=== PATIENT | male | born 1990 | race Hispanic/Latino ===

== ENCOUNTER → 2017-11-19 | Outpatient (CLI) | payer MEDICAID | LOC: M OUTALCOH 08:10 | DX: Z13.9 Encounter for screening, unspecified (principal); F12.10 Cannabis abuse, uncomplicated ==

== ENCOUNTER 2018-02-21 18:24 | Emergency (ER) | payer SELFPAY, MEDICAID ==
[2018-02-21] MEDS: ADACEL/BOOSTRIX VACCINE (DIPHTH/PERTUSS/ACELL/TETANUS)0.5ML SYR (90715) IM ×2 (19:26)
[2018-02-21] MEDS: BACTRIM 160MG/800MG DS TAB PO ×2 (19:29)
== END 2018-02-21 19:42 | disposition home or self-care (01) ==
LOC: M ED 19:42
DX: S81.812A Laceration without foreign body, left lower leg, initial encounter (principal); W26.8XXA Contact with other sharp object(s), not elsewhere classified, initial encounter; Y92.89 Other specified places as the place of occurrence of the external cause; F41.9 Anxiety disorder, unspecified
CPT/HCPCS: 90715

== ENCOUNTER 2018-11-19 16:16 | Emergency (ER) | payer MEDICAID, OTHER, SELFPAY ==
[~2018-11-19] VITALS: Ht 172.7 cm; Wt 142.6 kg
[~2018-11-19 16:16] MED LIST: BACT800T5 PO; DEPA500T2 PO; HALO1TAB29 IM; LORA2TA IM; PAXI20TA3 PO; no home medications
[2018-11-19] MEDS ORDERED: FAMOTIDINE IV BAG 20 MG in APPROPRIATE DILUENT 1 EA IV ONE (18:30)
[2018-11-19] MEDS ORDERED: ONDANSETRON 4MG/2ML VIAL (J2405) IV ONE (18:30)
[2018-11-19] MEDS ORDERED: NS 1,000 ML IV ONE (18:30)
[2018-11-19] MEDS ORDERED: KETOROLAC 30 MG/ML VIAL (J1885) IV ONE (18:30)
[2018-11-19 18:44] LABS: BASO % 0.4 % (0.0-1.0); EOS # 0.1 10^3/uL (0.0-0.50); EOS % 0.9 % (0.0-3.0); HEMATOCRIT 49.4 % (42.0-52.0); HEMOGLOBIN 16.3 g/dl (13.5-17.5); LYMPH # 0.6 10^3/uL (1.5-6.5); LYMPH % 7.7 % (24.0-44.0); MEAN CORPUSCULAR VOLUME 87.7 fl (80.0-96.0); MONO # 0.4 10^3/uL (0.0-0.8); MONO % 5.3 % (0.0-5.0); NEUTROPHILS % 85.2 % (36.0-66.0); PLATELET COUNT, AUTOMATED 118 10^3/uL (150-450); RED BLOOD COUNT 5.63 10^6/uL (4.30-6.10); WHITE BLOOD COUNT 8.2 10^3/uL (4.0-10.0)
[2018-11-19 19:07] LABS: ALBUMIN 4.3 GM/DL (3.2-5.2); ALT/SGPT 60 U/L (12-78); BILIRUBIN,DIRECT 0.2 MG/DL (0.0-0.2); BILIRUBIN,TOTAL 0.6 MG/DL (0.2-1.0); BLOOD UREA NITROGEN 15 MG/DL (7-18); CALCIUM LEVEL 8.7 MG/DL (8.5-10.1); CARBON DIOXIDE LEVEL 25 MEQ/L (21-32); CHLORIDE LEVEL 107 MEQ/L (98-107); CREATININE FOR GFR 1.04 MG/DL (0.70-1.30); GLOMERULAR FILTRATION RATE > 60.0 (>60); GLUCOSE, FASTING 107 MG/DL (70-100); LIPASE 109 U/L (73-393); POTASSIUM SERUM 4.1 MEQ/L (3.5-5.1); SODIUM LEVEL 139 MEQ/L (136-145); TOTAL PROTEIN 7.6 GM/DL (6.4-8.2)
[2018-11-19] MEDS ORDERED: ZOFR4TAB16 PO (19:38)
[2018-11-19 19:45] VITALS: BP 111/51
== END 2018-11-19 20:14 | disposition home or self-care (01) ==
LOC: M ED 16:16
DX: K52.9 Noninfective gastroenteritis and colitis, unspecified (principal); Z72.0 Tobacco use
CPT/HCPCS: 80048; 80076; 83690; 85025; 96365; 96366; 96375; 99284; J1885; J2405

== ENCOUNTER 2019-01-28 02:53 | Inpatient (IN) | payer MEDICAID, OTHER ==
[~2019-01-28] VITALS: Ht 172.7 cm; Wt 135.1 kg
[~2019-01-28 02:53] MED LIST changes: +ZOFR4TAB16 PO
[2019-01-28] MEDS ORDERED: SERO1TAB3 PO (03:56)
[2019-01-28] MEDS ORDERED: PROZ20CA11 PO (03:56)
[2019-01-28 04:14] LABS: HEMATOCRIT 47.2 % (42.0-52.0); HEMOGLOBIN 15.6 g/dl (13.5-17.5); MEAN CORPUSCULAR HEMOGLOBIN 29.3 pg (27.0-33.0); MEAN CORPUSCULAR HGB CONC 33.1 g/dl (32.0-36.5); MEAN CORPUSCULAR VOLUME 88.6 fl (80.0-96.0); PLATELET COUNT, AUTOMATED 144 10^3/uL (150-450); RED BLOOD COUNT 5.33 10^6/uL (4.30-6.10); WHITE BLOOD COUNT 10.2 10^3/uL (4.0-10.0)
[2019-01-28 04:44] LABS: ACETAMINOPHEN LEVEL < 2.0 UG/ML (10.0-30.0); ALBUMIN 4.1 GM/DL (3.2-5.2); ALT/SGPT 38 U/L (12-78); BILIRUBIN,DIRECT 0.2 MG/DL (0.0-0.2); BILIRUBIN,TOTAL 0.5 MG/DL (0.2-1.0); BLOOD UREA NITROGEN 15 MG/DL (7-18); CALCIUM LEVEL 8.8 MG/DL (8.5-10.1); CARBON DIOXIDE LEVEL 24 MEQ/L (21-32); CHLORIDE LEVEL 110 MEQ/L (98-107); CREATININE FOR GFR 1.14 MG/DL (0.70-1.30); ETHYL ALCOHOL (ETHANOL) < 0.003 % (0.000-0.010); GLOMERULAR FILTRATION RATE > 60.0 (>60); GLUCOSE, FASTING 101 MG/DL (70-100); POTASSIUM SERUM 3.9 MEQ/L (3.5-5.1); SALICYLATE LEVEL < 1.7 MG/DL (5.0-30.0); SODIUM LEVEL 143 MEQ/L (136-145); TOTAL PROTEIN 7.9 GM/DL (6.4-8.2)
[2019-01-28 05:02] LABS: AMPHETAMINES LEVEL URINE NEGATIVE (NEGATIVE); BARBITURATES URINE NEGATIVE (NEGATIVE); BENZODIAZEPINES URINE NEGATIVE (NEGATIVE); CANNABINOIDS URINE POSITIVE (NEGATIVE); COCAINE METABOLITE URINE NEGATIVE (NEGATIVE); METHADONE URINE NEGATIVE (NEGATIVE); OPIATES URINE NEGATIVE (NEGATIVE); PHENCYCLIDINE URINE NEGATIVE (NEGATIVE)
[2019-01-28] MEDS ORDERED: traZODone 50 MG TAB PO PRN (07:00)
[2019-01-28] MEDS ORDERED: MOM 30ML SUSPENSION UDC PO PRN (07:00)
[2019-01-28] MEDS ORDERED: ACETAMINOPHEN TAB 650MG DOSE (2X325MG) PO PRN (07:00)
[2019-01-28] MEDS ORDERED: MAALOX 30 ML SUSP *UDC PO PRN (07:00)
[2019-01-28 08:43] VITALS: BP 133/77
--- NOTE | 2019-01-28 09:39 | HPEPDOC ---
General Date of Admission Jan 28, 2019 at 07:01 Date of Service: Jan 28, 2019 Attending Physician: GOOD FOURNIER MD Chief Complaint The patient is a 28-year-old male admitted with a reason for visit of Unspecified Depressive Disorder. History of Present Illness Patient is a 28-year-old male, past medical history significant for anxiety, depression, presenting to the emergency room on account of not feeling safe in acute PTSD. He also reported recent domestic stressors acting as a trigger for this episode. On assessment he denies any medical history. he requests screening for STDs. He denies any fevers, chills, weakness, fatigue, HUTSON, CP, SOB, cough, palpitations, abdominal pain, N/V/D or changes in bowel or bladder habits. Home Medications Scheduled Fluoxetine HCl (Prozac) 20 Mg Capsule, 20 MG PO DAILY, (Reported) Quetiapine Fumarate (Seroquel) 25 Mg Tablet, 25 MG PO QHS, (Reported) Allergies Coded Allergies: No Known Allergies (Unverified , 01/28/19) Past Medical History Medical History Obesity Nicotine dependence Surgical History Right foot big toe bone spur removal Social History * Smoker: current smoker Alcohol: Denies Drugs: marijuana A-FIB/CHADSVASC A-FIB History Current/History of A-Fib/PAF?: No Current PO Anticoag Therapy: No Review of Systems Other systems A 10 point pertinent review of systems was completed, negative except as stated in the history of presenting illness. Physical Examination Other physical findings GENERAL: obese SKIN : Warm, dry intact HEENT: Atraumatic, normocephalic, PERRL, moist mucous membrane CARDIOVASCULAR: Regular rate and rhythm, S1S2, no JVD, no edema, distal pulses + and palpable RESP: CTAB, no accessory muscle use noted ABDOMEN: BS+ non distended non tender MS: no joint deformities NEURO: Alert and oriented x 3, CN2-12 grossly intact PSYCH: no anxiety or agitation, appropriate mood and affect. Vital Signs Vital Signs Date Time Temp Pulse Resp B/P (MAP) Pulse Ox O2 Delivery O2 Flow Rate FiO2 01/28/19 08:18 99.1 61 20 119/57 (77) 100 01/28/19 04:01 Room Air Laboratory Data Labs 24H Laboratory Tests 2 01/28/19 03:49: Nucleated Red Blood Cells % (auto) 0.0, Anion Gap 9, Glomerular Filtration Rate > 60.0, Calcium Level 8.8, Aspartate Amino Transf (AST/SGOT) 26, Alanine A minotransferase (ALT/SGPT) 38, Alkaline Phosphatase 83, Total Bilirubin 0.5, Direct Bilirubin 0.2, Total Protein 7.9, Albumin 4.1, Albumin/Globulin Ratio 1.08, Thyroid Stimulating Hormone (TSH) 1.940, Salicylates Level < 1.7L, Urine Amphetamines Screen NEGATIVE, Urine Benzodiazepines Screen NEGATIVE, Urine Opiates Screen NEGATIVE, Urine Methadone Screen NEGATIVE, Acetaminophen Level < 2.0L, Urine Barbiturates Screen NEGATIVE, Urine Phencyclidine Screen NEGATIVE, Urine Cocaine Metabolite Screen NEGATIVE, Urine Cannabinoids Screen POSITIVEH, Ethyl Alcohol Level < 0.003 CBC/BMP Laboratory Tests 01/28/19 03:49 Red Blood Count 5.33, Mean Corpuscular Volume 88.6, Mean Corpuscular Hemoglobin 29.3, Mean Corpuscular Hemoglobin Concent 33.1, Red Cell Distribution Width 13.2 Assessment/Plan Obesity -TLC have been discussed with patient STD screening -test have been ordered Nicotine use/Anxiety/PTSD Management by primary team At this time patient has no acute medical problems or underlying comorbidities requiring active follow-up. Acute problems are managed by primary team. Medical team will sign off, please re-consult as needed. Plan / VTE VTE Prophylaxis Ordered?: No VTE Exclusion Mechanical Proph: Low Risk for VTE KEENAN NYE [facility] Jan 28, 2019 09:39
[2019-01-28] MEDS: NICOTINE 21MG/24HR 1 EA TRANSDERMAL TD SCH (10:05)
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
[2019-01-28 18:35] VITALS: BP 108/58
[2019-01-28] MEDS: QUEtiapine FUMARATE 25 MG TAB PO PRN (20:10)
[2019-01-29 06:44] VITALS: BP 101/56
[2019-01-29] MEDS: FLUoxetine 20 MG CAP PO SCH (08:17)
[2019-01-29] MEDS: NICOTINE 21MG/24HR 1 EA TRANSDERMAL TD SCH (08:17)
[2019-01-29] MEDS: DOCUSATE SODIUM 100 MG CAP PO SCH ×2 (12:03→21:00)
[2019-01-29 18:00] VITALS: BP 140/66
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
[2019-01-29] MEDS: QUEtiapine FUMARATE 25 MG TAB PO PRN (21:16)
[2019-01-30 06:46] VITALS: BP 121/69
[2019-01-30] MEDS: NICOTINE 21MG/24HR 1 EA TRANSDERMAL TD SCH (09:00)
[2019-01-30] MEDS: DOCUSATE SODIUM 100 MG CAP PO SCH (09:00)
[2019-01-30] MEDS: FLUoxetine 20 MG CAP PO SCH (09:34)
[2019-01-30] MEDS ORDERED: TRAZ1TAB10 PO (10:35)
[2019-01-30] MEDS ORDERED: COLA100C5 PO (10:35)
[2019-01-30] MEDS ORDERED: NICO21PAT TD (10:35)
[2019-01-30] MEDS ORDERED: SERO1TAB3 PO (10:35)
[2019-01-30] MEDS ORDERED: PROZ20CA11 PO (10:35)
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
[2019-01-31 00:09] LABS: HIV-1 RNA PCR QUANT 1 LC162545 <20 copies/mL (.)
== END 2019-01-30 11:25 | disposition home or self-care (01) | DRG 751 ==
LOC: M ED 02:53 → M ED INP 07:01 → M PSY 08:30
PROVIDERS: ADMIT Psychiatry & Neurology Psychiatry; ATTEND Psychiatry & Neurology Psychiatry
DX: F33.9 Major depressive disorder, recurrent, unspecified (principal); F41.1 Generalized anxiety disorder; F43.10 Post-traumatic stress disorder, unspecified; Z79.899 Other long term (current) drug therapy

== ENCOUNTER → 2019-03-23 | Outpatient (REF) | payer OTHER ==
[~2019-03-23] MED LIST changes: +COLA100C5 PO; +NICO21PAT TD; +PROZ20CA11 PO; +SERO1TAB3 PO; +TRAZ1TAB10 PO
[2019-03-23 20:43] LABS: CHLAMYDIA DNA AMPLIFICATION NEGATIVE (NEGATIVE); GC DNA AMPLIFICATION NEGATIVE (NEGATIVE)
== END ==
LOC: M LAB REF 10:00
PROVIDERS: ATTEND Nurse Practitioner Family
DX: Z20.2 Contact with and (suspected) exposure to infections with a predominantly sexual mode of transmission (principal)

== ENCOUNTER 2019-04-02 22:52 | Emergency (ER) | payer MEDICAID, OTHER ==
[~2019-04-02] VITALS: Ht 172.7 cm; Wt 127.3 kg
[2019-04-02 22:52] VITALS: BP 136/95
== END 2019-04-03 00:25 | disposition left against medical advice (07) ==
LOC: M ED 22:52
DX: Z53.29 Procedure and treatment not carried out because of patient's decision for other reasons (principal)

== ENCOUNTER → 2019-06-02 | Outpatient (REF) | payer OTHER ==
[2019-06-02 16:00] LABS: CHLAMYDIA DNA AMPLIFICATION NEGATIVE (NEGATIVE); GC DNA AMPLIFICATION NEGATIVE (NEGATIVE)
== END ==
LOC: M LAB REF 13:32
PROVIDERS: ATTEND Physician Assistant Medical
DX: Z11.3 Encounter for screening for infections with a predominantly sexual mode of transmission (principal)

== ENCOUNTER 2019-12-28 00:18 | Emergency (ER) | payer OTHER ==
[~2019-12-28] VITALS: Ht 172.7 cm; Wt 128.2 kg
[2019-12-28 01:03] LABS: BASO # 0.1 10^3/uL (0.0-0.2); BASO % 0.7 % (0.0-1.0); EOS # 0.1 10^3/uL (0.0-0.5); EOS % 0.9 % (0.0-3.0); HEMATOCRIT 47.1 % (42.0-52.0); HEMOGLOBIN 16.3 g/dl (13.5-17.5); LYMPH # 2.4 10^3/uL (1.5-5.0); MEAN CORPUSCULAR HEMOGLOBIN 29.3 pg (27.0-33.0); MEAN CORPUSCULAR HGB CONC 34.6 g/dl (32.0-36.5); MEAN CORPUSCULAR VOLUME 84.7 fl (80.0-96.0); MONO % 11.9 % (0.0-5.0); NEUTROPHILS # 5.2 10^3/uL (1.5-8.5); NEUTROPHILS % 58.7 % (36.0-66.0); PLATELET COUNT, AUTOMATED 216 10^3/uL (150-450); RED BLOOD COUNT 5.56 10^6/uL (4.30-6.10); WHITE BLOOD COUNT 8.8 10^3/uL (4.0-10.0)
[2019-12-28 01:45] LABS: ALBUMIN 3.9 GM/DL (3.2-5.2); ALT/SGPT 67 U/L (12-78); BILIRUBIN,DIRECT 0.2 MG/DL (0.0-0.2); BILIRUBIN,TOTAL 0.6 MG/DL (0.2-1.0); BLOOD UREA NITROGEN 20 MG/DL (7-18); CALCIUM LEVEL 9.1 MG/DL (8.5-10.1); CARBON DIOXIDE LEVEL 22 MEQ/L (21-32); CHLORIDE LEVEL 107 MEQ/L (98-107); CK-MB VALUE MASS < 1.0 NG/ML (<3.6); CPK CREATINE PHOSPHOKINASE 174 U/L (39-308); GLOMERULAR FILTRATION RATE > 60.0 (>60); GLUCOSE, FASTING 100 MG/DL (70-100); LIPASE 111 U/L (73-393); MB/CK RELATIVE INDEX 0.57 (< OR =4); SODIUM LEVEL 138 MEQ/L (136-145); TOTAL PROTEIN 8.6 GM/DL (6.4-8.2); TROPONIN I < 0.02 NG/ML (< 0.10)
[2019-12-28] MEDS ORDERED: ISOVUE-370 76% 100ML VIAL As Ordered ONE (01:50)
--- NOTE | 2019-12-28 02:14 | REPVR ---
PROCEDURE INFORMATION: Exam: CT Angiography Chest With Contrast Exam date and time: 12/28/2019 2:01 AM Age: 29 years old Clinical indication: Chest pain; Additional info: Pain with deep breathing and elevated ddimer R/O pe TECHNIQUE: Imaging protocol: Computed tomographic angiography of the chest with intravenous contrast. 3D rendering: MIP and/or 3D reconstructed images were created by the technologist. Radiation optimization: All CT scans at this facility use at least one of these dose optimization techniques: automated exposure control; mA and/or kV adjustment per patient size (includes targeted exams where dose is matched to clinical indication); or iterative reconstruction. Contrast material: ISO 370; Contrast volume: 100 ml; Contrast route: IV; COMPARISON: No relevant prior studies available. FINDINGS: Pulmonary arteries: Normal. No pulmonary emboli. Aorta: Unremarkable. No aortic aneurysm. No aortic dissection. Lungs: Unremarkable. No consolidation. No masses. Pleural space: Unremarkable. No pneumothorax. No pleural effusion. Heart: Unremarkable. No cardiomegaly. No pericardial effusion. Lymph nodes: Unremarkable. No enlarged lymph nodes. Bones/joints: Unremarkable. No acute fracture. Soft tissues: Unremarkable. IMPRESSION: No acute findings. Electronically signed by: Ángel Dave On 12/28/2019 02:14:10 AM
[2019-12-28 02:35] VITALS: BP 131/86
--- NOTE | 2019-12-28 06:31 | ECGEPIP ---
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
== END 2019-12-28 02:35 | disposition home or self-care (01) ==
LOC: M ED 00:18
DX: R07.9 Chest pain, unspecified (principal); R06.02 Shortness of breath; F12.90 Cannabis use, unspecified, uncomplicated
CPT/HCPCS: 36415; 71275; 80048; 80076; 82550; 82553; 83690; 85025; 85379; 93005; 99284; Q9967

== ENCOUNTER 2020-09-12 13:08 | Emergency (ER) | payer OTHER ==
[~2020-09-12] VITALS: Ht 172.7 cm; Wt 130.6 kg
[2020-09-12 13:08] VITALS: BP 139/75
--- OUTSIDE RECORDS SUMMARY | 2020-09-12 13:13 | CCD ---
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 Role Phone Pleskach, Kathi SPOT MAN Unavailable Unavailable Pleskach, Kathi SPOT MAN Unavailable Unavailable Pleskach, Kathi SPOT MAN Unavailable Unavailable Pleskach, Kathi SPOT MAN Unavailable Unavailable Pleskach, Kathi SPOT MAN Unavailable Unavailable Pleskach, Kathi SPOT MAN Unavailable Unavailable Pleskach, Kathi SPOT MAN Unavailable Unavailable Pleskach, Kathi SPOT MAN Unavailable Unavailable Pleskach, Kathi SPOT MAN Unavailable Unavailable Pleskach, Kathi SPOT MAN Unavailable Unavailable Pleskach, Kathi SPOT MAN Unavailable Unavailable Pleskach, Kathi SPOT MAN Unavailable Unavailable Pleskach, Kathi SPOT MAN Unavailable Unavailable Pleskach, Kathi SPOT MAN Unavailable Unavailable Pleskach, Kathi SPOT MAN Unavailable Unavailable Pleskach, Kathi SPOT MAN Unavailable Unavailable Pleskach, Kathi SPOT MAN Unavailable Unavailable Pleskach, Kathi SPOT MAN Unavailable Unavailable Pleskach, Kathi SPOT MAN Unavailable Unavailable Pleskach, Kathi SPOT MAN Unavailable Unavailable Pleskach, Kathi SPOT MAN Unavailable Unavailable Pleskach, Kathi SPOT MAN Unavailable Unavailable Pleskach, Kathi SPOT MAN Unavailable Unavailable Pleskach, Kathi SPOT MAN Unavailable Unavailable Pleskach, Kathi SPOT MAN Unavailable Unavailable Pleskach, Kathi SPOT MAN Unavailable Unavailable Pleskach, Kathi SPOT MAN Unavailable Unavailable Pleskach, Kathi SPOT MAN Unavailable Unavailable Dille, E Sabrina DDS Unavailable Unavailable Dille, E Sabrina DDS Unavailable Unavailable Dille, E Sabrina DDS Unavailable Unavailable Dille, E Sabrina DDS Unavailable Unavailable Re-disclosure Warning The records that you are about to access may contain information from federally-assisted alcohol or drug abuse programs. If such information is present, then the following federally mandated warning applies: This information has been disclosed to you from records protected by federal confidentiality rules (42 CFR part 2). The federal rules prohibit you from making any further disclosure of this information unless further disclosure is expressly permitted by the written consent of the person to whom it pertains or as otherwise permitted by 42 CFR part 2. A general authorization for the release of medical or other information is NOT sufficient for this purpose. The Federal rules restrict any use of the information to criminally investigate or prosecute any alcohol or drug abuse patient.The records that you are about to access may contain highly sensitive health information, the redisclosure of which is protected by Article 27-F of the [facility] Public Health law. If you continue you may have access to information: Regarding HIV / AIDS; Provided by facilities licensed or operated by the [facility] Office of Mental Health; or Provided by the [facility] Office for People With Developmental Disabilities. If such information is present, then the following [facility] mandated warning applies: This information has been disclosed to you from confidential records which are protected by state law. State law prohibits you from making any further disclosure of this information without the specific written consent of the person to whom it pertains, or as otherwise permitted by law. Any unauthorized further disclosure in violation of state law may result in a fine or penitentiary sentence or both. A general authorization for the release of medical or other information is NOT sufficient authorization for further disc losure. Encounters Encounter Providers Location Date Indications Data Source(s ) Office Visit Attender: Kathi Usama [facility] Main Office 11:00:00 AM [facility] ([facility] Outpatient Attender: Kathi Usama [facility] Main Office 05/05/2020 0 3:30:00 PM EDT [facility] ([facility] Outpatient Attender: Kathi Usama [facility] Main Office 02/11/2020 0 2:40:00 PM EDT [facility] ([facility] Outpatient Attender: Sabrina Pittman Mil[facility] 02/03/2020 07:54:41 P M EDT [facility] Outpatient Attender: Kathi Usama [facility] Main Office 02/03/2020 0 2:30:00 PM EDT [facility] ([facility] Outpatient 01/08/2020 09:09:00 PM EDT [facility] Imaging Medications Medication Brand Name Start Date Product Form Dose Route Admi nistrative Instructions Pharmacy Instructions Status Indications Reaction Description Data Source(s) 2 mg 08/09/2020 12:00:00 AM EST tablet 30 TAKE ONE TABLET BY MOUTH AT BEDTIME TAKE ONE TABLET BY MOUTH AT BEDTIME SOLD: 08/12/2020 [facility] 75 mg 08/09/2020 12:00:00 AM EST tablet 60 TAKE TWO TABLETS BY MOUTH EVERY DAY TAKE TWO TABLETS BY MOUTH EVERY DAY SOLD: 08/12/2020 [facility] 75 mg 07/05/2020 12:00:00 AM EST tablet 60 TAKE TWO TABLETS BY MOUTH EVERY DAY TAKE TWO TABLETS BY MOUTH EVERY DAY SOLD: 07/15/2020 [facility] 75 mg 05/26/2020 12:00:00 AM EDT tablet 60 TAKE TWO TABLETS BY MOUTH EVERY DAY TAKE TWO TABLETS BY MOUTH EVERY DAY SOLD: 05/27/2020 [facility] Prednisone 20 MG Oral Tablet Prednisone 05/19/2020 12:00:00 AM EDT ORAL active [facility] ([facility] Zithromax Z-Mikey Zithromax Z-Mikey 05/19/2020 12:00:00 AM EDT ORAL active [facility] ([facility] 250 mg 05/19/2020 12:00:00 AM EDT tablet 6 TAKE TWO TABLETS BY MOUTH AT ONCE ON THE FIRST DAY THEN TAKE ONE DAILY THEREAFTER TAKE TWO TABLETS BY MOUTH AT ONCE ON THE FIRST DAY THEN TAKE ONE DAILY THEREAFTER SOLD: 05/19/2020 [facility] 20 mg 05/19/2020 12:00:00 AM EDT tablet 10 TAKE TWO TABLETS BY MOUTH EVERY DAY FOR 5 DAYS TAKE TWO TABLETS BY MOUTH EVERY DAY FOR 5 DAYS SOLD: 020 [facility] 1 % 05/06/2020 12:00:00 AM EDT cream 30 APPLY TO AFFECTED AREA(S) TWO TIMES A DAY FOR 2 WEEKS APPLY TO AFFECTED AREA(S) TWO TIMES A DAY FOR 2 WEEKS SOLD: 05/06/2020 [facility] Clotrimazole 10 MG/ML Topical Cream Clotrimazole 05/05/2020 12:00:00 AM EDT active [facility] ([facility] 75 mg 03/19/2020 12:00:00 AM EDT tablet 30 TAKE ONE TABLET BY MOUTH EVERY DAY TAKE ONE TABLET BY MOUTH EVERY DAY SOLD: 03/24/2020 [facility] 75 mg 03/19/2020 12:00:00 AM EDT tablet 30 TAKE ONE TABLET BY MOUTH EVERY DAY TAKE ONE TABLET BY MOUTH EVERY DAY SOLD: 05/04/2020 [facility] Azelastine hydrochloride 0.5 MG/ML Ophthalmic Solution Azelastine HCL (Ophthalmic) 02/13/2020 12:00:00 AM EDT active [facility] ([facility] olopatadine 2 MG/ML Ophthalmic Solution Olopatadine HCL 02/11/2020 12:00:00 AM EDT completed [facility] ([facility] 113-14 mcg/actuation 02/05/2020 12:00:00 AM EDT aerosol powdr breath activated 3 INHALE ONE PUFF BY MOUTH TWICE A DAY INHA LE ONE PUFF BY MOUTH TWICE A DAY SOLD: 05/28/2020 [facility] Airduo Respiclick 113/14 Airduo Respiclick 113/14 02/05/2020 12:00: 00 AM EDT active [facility] ([facility] 113-14 mcg/actuation 02/05/2020 12:00:00 AM EDT aerosol powdr breath activated 3 INHALE ONE PUFF BY MOUTH TWICE A DAY INHA LE ONE PUFF BY MOUTH TWICE A DAY SOLD: 02/05/2020 [facility] pantoprazole 40 MG Delayed Release Oral Tablet PANTOPRAZOLE SODIUM 02/04/2020 12:00:00 AM EDT tablet,delayed release (DR/EC) 90 T NIRALI ONE TABLET BY MOUTH EVERY DAY FOR HEARTBURN/ ACID REFLUX TAKE ONE TABLET BY MOUTH EVERY DAY FOR HEARTBURN/ ACID REFLUX SOLD: 05/04/2020 [facility] 90 mcg/actuation 02/04/2020 12:00:00 AM EDT HFA aerosol inha ler 8 INHALE TWO PUFFS BY MOUTH EVERY 4 HOURS NEEDED INHALE TWO PUFFS BY MOUTH EVERY 4 HOURS NEEDED SOLD: 02/05/2020 [facility] 40 mg 02/04/2020 12:00:00 AM EDT tablet,delayed release (DR/EC) 90 TAKE ONE TABLET BY MOUTH EVERY DAY FOR HEARTBURN/ ACID REFLUX TAKE ONE TABLET BY MOUTH EVERY DAY FOR HEARTBURN/ ACID REFLUX SOLD: 02/05/2020 [facility] pantoprazole 40 MG Delayed Release Oral Tablet PANTOPRAZOLE SODIUM 02/04/2020 12:00:00 AM EDT tablet,delayed release (DR/EC) 90 T NIRALI ONE TABLET BY MOUTH EVERY DAY FOR HEARTBURN/ ACID REFLUX TAKE ONE TABLET BY MOUTH EVERY DAY FOR HEARTBURN/ ACID REFLUX SOLD: 08/13/2020 [facility] 60 ACTUAT Fluticasone propionate 0.1 MG/ ACTUAT / salmeterol 0.05 MG/ACTUAT Dry Powder Inhaler Fluticasone Propionate/Salmeterol Diskus 02/03/2020 12 :00:00 AM EDT RESPIRATORY completed [facility] ([facility] 200 ACTUAT Albuterol 0.09 MG/ACTUAT Metered Dose Inhaler [Pr oAir] Proair HFA 02/03/2020 12:00:00 AM EDT RESPIRATORY active [facility] ([facility] pantoprazole 40 MG Delayed Release Oral Tablet Pantoprazole Sodium 02/03/2020 12:00:00 AM EDT ORAL active [facility] ([facility] Insurance Providers Payer name Policy type / Coverage type Policy ID Covered democrat ID Covered democrat's relationship to palomares Policy Palomares Plan Information [employer] MCDO [id number] SP [id number] [facility]) O [id number] S [id number] [facility] [id number] SP [id number] [facility] [id number] SP [id number] [employer] MCDO [id number] SP [id number] SELF PAY ONLY [id number] SP [id number] MEDICAID [id number] SP [id number] SELF PAY UNAVAILABLE SP UNA[place]ILA BLE HMO BLUE [id number] SP [id number] HMO BLUE [id number] SP [id number] [employer] [id number] SP [id number] [employer] [id number] SP [id number] Results ID Date Data Source [id number] 05/11/2020 09:49:00 AM EDT [facility] ([facility] Name Value Range Interpretation Code Description Data Amelie rce(s) Supporting Document(s) Neisseria gonorrhoeae rRNA [Presence] in Unspecified specimen by Probe and target amplification method Laboratory test result [facility] A courtesy copy of this report has been sent to [phone] SRC:UR SRC:UR SRC:UR Chlamydia trachomatis rRNA [Presence] in Cervix by Probe and target amplification method Laboratory test result [facility] ([facility] A courtesy copy of this report has been sent to [phone] SRC:UR SRC:UR SRC:UR ID Date Data Source [id number] 05/11/2020 09:49:00 AM EDT [facility] ([facility] Name Value Range Interpretation Code Description Data Amelie rce(s) Supporting Document(s) Laboratory test finding (navigational concept) 0.55 IndexValue 0.00-0 .79 [facility] ([facility] A courtesy copy of this report has been sent to [phone] SRC:UR SRC:UR SRC:UR Laboratory test finding (navigational concept) Laboratory test resu lt 0.0-8.9 [facility] ([facility] A courtesy copy of this report has been sent to [phone] SRC:UR SRC:UR SRC:UR Laboratory test finding (navigational concept) Laboratory test resu lt 0.0-8.9 [facility] ([facility] A courtesy copy of this report has been sent to [phone] SRC:UR SRC:UR SRC:UR ID Date Data Source [id number] 05/11/2020 09:49:00 AM EDT [facility] ([facility] Name Value Range Interpretation Code Description Data Amelie rce(s) Supporting Document(s) Reagin Ab [Presence] in Serum by VDRL Laboratory test result Abnormal (applies to non-numeric results) [facility] A courtesy copy of this report has been sent to [phone] SRC:UR SRC:UR SRC:UR Treponema pallidum IgG+IgM Ab [Presence] in Serum by I mmunoassay Laboratory test result Abnormal (applies to non-numeric results) [facility] A courtesy copy of this report has been sent to [phone] SRC:UR SRC:UR SRC:UR Reagin Ab [Titer] in Serum by RPR Laboratory test result [facility] ([facility] A courtesy copy of this report has been sent to [phone] SRC:UR SRC:UR SRC:UR ID Date Data Source [id number] 05/11/2020 09:49:00 AM EDT [facility] ([facility] Name Value Range Interpretation Code Description Data Amelie rce(s) Supporting Document(s) Glucose [Mass/volume] in Serum or Plasma 101 mg/dL 65-99 [facility] A courtesy copy of this report has been sent to [phone] SRC:UR SRC:UR SRC:UR Urea nitrogen [Mass/volume] in Serum or Plasma 15 mg/dL 6-20 [facility] A courtesy copy of this report has been sent to [phone] SRC:UR SRC:UR SRC:UR eGFR If NonAfricn Am 95 mL/min/1.73 [facility] ([facility] A courtesy copy of this report has been sent to [phone] SRC:UR SRC:UR SRC:UR Creatinine [Mass/volume] in Serum or Plasma 1.05 mg/dL 0.76-1.27 [facility] A courtesy copy of this report has been sent to [phone] SRC:UR SRC:UR SRC:UR Sodium [Moles/volume] in Serum or Plasma 139 mmol/L 134-144 [facility] A courtesy copy of this report has been sent to [phone] SRC:UR SRC:UR SRC:UR Urea nitrogen/Creatinine [Mass Ratio] in Serum or Plasma 14 9 -20 [facility] A courtesy copy of this report has been sent to [phone] SRC:UR SRC:UR SRC:UR eGFR If Africn Am 110 mL/min/1.73 [facility] A courtesy copy of this report has been sent to [phone] SRC:UR SRC:UR SRC:UR Potassium [Moles/volume] in Serum or Plasma 4.2 mmol/L 3.5-5.2 [facility] A courtesy copy of this report has been sent to [phone] SRC:UR SRC:UR SRC:UR Chloride [Moles/volume] in Serum or Plasma 103 mmol/L 96-106 [facility] A courtesy copy of this report has been sent to [phone] SRC:UR SRC:UR SRC:UR Carbon dioxide, total [Moles/volume] in Serum or Plasma 24 mmol/L 20 -29 [facility] A courtesy copy of this report has been sent to [phone] SRC:UR SRC:UR SRC:UR Calcium [Mass/volume] in Serum or Plasma 9.4 mg/dL 8.7-10.2 [facility] A courtesy copy of this report has been sent to [phone] SRC:UR SRC:UR SRC:UR Protein, Total 7.2 g/dL 6.0-8.5 [facility] ([facility] A courtesy copy of this report has been sent to [phone] SRC:UR SRC:UR SRC:UR Albumin [Mass/volume] in Serum or Plasma 4.5 g/dL 4.1-5.2 [facility] ([facility] A courtesy copy of this report has been sent to [phone] SRC:UR SRC:UR SRC:UR Albumin/Globulin [Mass Ratio] in Serum or Plasma 1.7 1.2-2.2 [facility] ([facility] A courtesy copy of this report has been sent to [phone] SRC:UR SRC:UR SRC:UR Globulin [Mass/volume] in Serum by calculation 2.7 g/dL 1.5-4.5 [facility] ([facility] A courtesy copy of this report has been sent to [phone] SRC:UR SRC:UR SRC:UR Aspartate aminotransferase [Enzymatic activity/volume] in Serum or Plasma 25 IU/L 0-40 [facility] ([facility] A courtesy copy of this report has been sent to [phone] SRC:UR SRC:UR SRC:UR Alkaline phosphatase [Enzymatic activity/volume] in Serum or Plasma 81 IU/L 39-117 [facility] A courtesy copy of this report has been sent to [phone] SRC:UR SRC:UR SRC:UR Bilirubin.total [Mass/volume] in Serum or Plasma 0.4 mg/dL 0.0-1.2 [facility] ([facility] A courtesy copy of this report has been sent to [phone] SRC:UR SRC:UR SRC:UR Alanine aminotransferase [Enzymatic activity/volume] in Seru m or Plasma 41 IU/L 0-44 [facility] ([facility] A courtesy copy of this report has been sent to [phone] SRC:UR SRC:UR SRC:UR ID Date Data Source [id number] 05/11/2020 09:49:00 AM EDT [facility] ([facility] Name Value Range Interpretation Code Description Data Amelie rce(s) Supporting Document(s) Erythrocytes [#/volume] in Blood by Automated count 5.31 x10E6/uL 4.1 4-5.80 [facility] ([facility] A courtesy copy of this report has been sent to [phone] SRC:UR SRC:UR SRC:UR Leukocytes [#/volume] in Blood by Automated count 7.8 x10E3/uL 3.4-10 .8 [facility] A courtesy copy of this report has been sent to [phone] SRC:UR SRC:UR SRC:UR Hematocrit [Volume Fraction] of Blood by Automated count 45.2 % 3 7.5-51.0 [facility] A courtesy copy of this report has been sent to [phone] SRC:UR SRC:UR SRC:UR Hemoglobin [Mass/volume] in Blood 15.8 g/dL 13.0-17.7 [facility] A courtesy copy of this report has been sent to [phone] SRC:UR SRC:UR SRC:UR Erythrocyte mean corpuscular volume [Entitic volume] by Auto mated count 85 fL 79-97 [facility] A courtesy copy of this report has been sent to [phone] SRC:UR SRC:UR SRC:UR Erythrocyte mean corpuscular hemoglobin [Entitic mass] by Automated count 29.8 pg 26.6-33.0 [facility] ([facility] A courtesy copy of this report has been sent to [phone] SRC:UR SRC:UR SRC:UR Erythrocyte mean corpuscular hemoglobin concentration [Mass/volume] by Automated count 35.0 g/dL 31.5-35.7 [facility] A courtesy copy of this report has been sent to [phone] SRC:UR SRC:UR SRC:UR Erythrocyte distribution width [Ratio] by Automated count 13.5 % 11.6-15.4 [facility] A courtesy copy of this report has been sent to [phone] SRC:UR SRC:UR SRC:UR Platelets [#/volume] in Blood by Automated count 134 x10E3/uL 150-450 [facility] A courtesy copy of this report has been sent to [phone] SRC:UR SRC:UR SRC:UR Neutrophils 62 % [facility] A courtesy copy of this report has been sent to [phone] SRC:UR SRC:UR SRC:UR Lymphocytes/100 leukocytes in Blood by Automated count 27 % [facility] A courtesy copy of this report has been sent to [phone] SRC:UR SRC:UR SRC:UR Monocytes/100 leukocytes in Blood by Automated count 7 % [facility] A courtesy copy of this report has been sent to [phone] SRC:UR SRC:UR SRC:UR Basophils/100 leukocytes in Blood by Automated count 1 % [facility] A courtesy copy of this report has been sent to [phone] SRC:UR SRC:UR SRC:UR Eosinophils/100 leukocytes in Blood by Automated count 2 % [facility] A courtesy copy of this report has been sent to [phone] SRC:UR SRC:UR SRC:UR Immature cells [#/volume] in Blood Laboratory test result [facility] A courtesy copy of this report has been sent to [phone] SRC:UR SRC:UR SRC:UR Neutrophils [#/volume] in Blood by Automated count 4.9 x10E3/uL 1.4-7 .0 [facility] A courtesy copy of this report has been sent to [phone] SRC:UR SRC:UR SRC:UR Lymphocytes [#/volume] in Blood 2.1 x10E3/uL 0.7-3.1 [facility] ([facility] A courtesy copy of this report has been sent to [phone] SRC:UR SRC:UR SRC:UR Monocytes [#/volume] in Blood 0.5 x10E3/uL 0.1-0.9 [facility] A courtesy copy of this report has been sent to [phone] SRC:UR SRC:UR SRC:UR Eosinophils [#/volume] in Blood by Automated count 0.2 x10E3/uL 0.0-0 .4 [facility] A courtesy copy of this report has been sent to [phone] SRC:UR SRC:UR SRC:UR Basophils [#/volume] in Blood by Automated count 0.0 x10E3/uL 0.0-0.2 [facility] A courtesy copy of this report has been sent to [phone] SRC:UR SRC:UR SRC:UR Immature granulocytes/100 leukocytes in Blood by Automated count 1 % [facility] A courtesy copy of this report has been sent to [phone] SRC:UR SRC:UR SRC:UR Immature granulocytes [#/volume] in Blood by Automated count 0.0 x10E3/uL 0.0-0.1 [facility] A courtesy copy of this report has been sent to [phone] SRC:UR SRC:UR SRC:UR Nucleated erythrocytes/100 leukocytes [Ratio] in Blood by Automated count Laboratory test result [facility] A courtesy copy of this report has been sent to [phone] SRC:UR SRC:UR SRC:UR Morphology [Interpretation] in Blood Narrative Laboratory test result [facility] A courtesy copy of this report has been sent to [phone] SRC:UR SRC:UR SRC:UR ID Date Data Source [id number] 05/11/2020 09:49:00 AM EDT [facility] ([facility] Name Value Range Interpretation Code Description Data Amelie rce(s) Supporting Document(s) Lipoprotein lipase [Enzymatic activity/volume] in Serum or Plasm a 34 U/L 13-78 [facility] A courtesy copy of this report has been sent to [phone] SRC:UR SRC:UR SRC:UR ID Date Data Source [id number] 05/11/2020 09:49:00 AM EDT [facility] ([facility] Name Value Range Interpretation Code Description Data Amelie rce(s) Supporting Document(s) Cholesterol [Mass/volume] in Serum or Plasma 165 mg/dL 100-199 [facility] A courtesy copy of this report has been sent to [phone] SRC:UR SRC:UR SRC:UR Triglyceride [Mass/volume] in Serum or Plasma 90 mg/dL 0-149 [facility] A courtesy copy of this report has been sent to [phone] SRC:UR SRC:UR SRC:UR Cholesterol in HDL [Mass/volume] in Serum or Plasma 44 mg/dL [facility] A courtesy copy of this report has been sent to [phone] SRC:UR SRC:UR SRC:UR Laboratory test finding (navigational concept) 104 mg/dL 0-99 [facility] A courtesy copy of this report has been sent to [phone] SRC:UR SRC:UR SRC:UR Laboratory test finding (navigational concept) 17 mg/dL 5-40 [facility] A courtesy copy of this report has been sent to [phone] SRC:UR SRC:UR SRC:UR Comment: Laboratory test result [facility] A courtesy copy of this report has been sent to [phone] SRC:UR SRC:UR SRC:UR ID Date Data Source [id number] 05/12/2020 04:05:00 AM EDT [facility] Name Value Range Interpretation Code Description Data Amelie rce(s) Supporting Document(s) WBC 7.8 x10E3/uL 3.4-10.8 [facility] RBC 5.31 x10E6/uL 4.14-5.80 [facility] Hemoglobin 15.8 g/dL 13.0-17.7 [facility] Hematocrit 45.2 % 37.5-51.0 [facility] MCV 85 fL 79-97 [facility] MCH 29.8 pg 26.6-33.0 [facility] MCHC 35.0 g/dL 31.5-35.7 [facility] RDW 13.5 % 11.6-15.4 [facility] Platelets 134 x10E3/uL 150-450 Below low normal [facility] Neutrophils 62 % Not Estab. [facility] Lymphs 27 % Not Estab. [facility] Monocytes 7 % Not Estab. [facility] Eos 2 % Not Estab. [facility] Basos 1 % Not Estab. [facility] Neutrophils (Absolute) 4.9 x10E3/uL 1.4-7.0 [facility] Lymphs (Absolute) 2.1 x10E3/uL 0.7-3.1 [facility] Monocytes(Absolute) 0.5 x10E3/uL 0.1-0.9 [facility] Eos (Absolute) 0.2 x10E3/uL 0.0-0.4 [facility] Baso (Absolute) 0.0 x10E3/uL 0.0-0.2 [facility] Immature Granulocytes 1 % Not Estab. [facility] Immature Grans (Abs) 0.0 x10E3/uL 0.0-0.1 [facility] ID Date Data Source [id number] 05/12/2020 02:06:00 PM EDT [facility] Name Value Range Interpretation Code Description Data Amelie rce(s) Supporting Document(s) Chlamydia/GC Amplification Lab [facility]isten TESTS RESULT FLAG UNI TS REF RANGE LAB C trachomatis, GUERITA Negative (Negative) 01N gonorrhoeae, GUERITA Negative (Negative) 01 FLAG LEGEND: L-Low Normal,H-High Normal,LL-Alert Low,HH-Alert High <-Panic Low,>-Panic High,A-Abnormal,AA-Critical Abnormal Performed at:[facility] [address] [id number] Lauren Hua MD, ID Date Data Source [id number] 05/12/2020 05:05:00 PM EDT [facility] Name Value Range Interpretation Code Description Data Amelie rce(s) Supporting Document(s) H. pylori, IgG Abs 0.55 Index Value 0.00-0.79 [facility] orp Negative <0.80 Equivocal 0.80 - 0.89 Positive >0.89 H. pylori, IgA Abs 0.0-8.9 [facility] Negative <9.0 Equivocal 9.0 - 11.0 Positive >11.0 H pylori, IgM Abs 0.0-8.9 [facility] Negative <9.0 Equivocal 9.0 - 11.0 Positive >11.0 This test was developed and its performance characteristicsdetermined by [facility]. It has not been cleared or approvedby the Food and Drug Administration. ID Date Data Source [id number] 05/12/2020 04:05:00 AM EDT [facility] Name Value Range Interpretation Code Description Data Amelie rce(s) Supporting Document(s) Glucose 101 mg/dL 65-99 Above high normal [facility] BUN 15 mg/dL 6-20 [facility] Creatinine 1.05 mg/dL 0.76-1.27 [facility] eGFR If NonAfricn Am 95 mL/min/1.73 >59 [facility] eGFR If Africn Am 110 mL/min/1.73 >59 [facility] BUN/Creatinine Ratio 14 9-20 [facility] Sodium 139 mmol/L 134-144 [facility] Potassium 4.2 mmol/L 3.5-5.2 [facility] Chloride 103 mmol/L 96-106 [facility] Carbon Dioxide, Total 24 mmol/L 20-29 [facility] Calcium 9.4 mg/dL 8.7-10.2 [facility] Protein, Total 7.2 g/dL 6.0-8.5 [facility] Albumin 4.5 g/dL 4.1-5.2 [facility] Globulin, Total 2.7 g/dL 1.5-4.5 [facility] A/G Ratio 1.7 1.2-2.2 [facility] Bilirubin, Total 0.4 mg/dL 0.0-1.2 [facility] Alkaline Phosphatase 81 IU/L 39-117 [facility] AST (SGOT) 25 IU/L 0-40 [facility] ALT (SGPT) 41 IU/L 0-44 [facility] ID Date Data Source [id number] 05/12/2020 05:05:00 PM EDT [facility] Name Value Range Interpretation Code Description Data Amelie rce(s) Supporting Document(s) RPR Reactive Non Reactive Abnormal (applies to non-numeric resu lts) [facility] ID Date Data Source [id number] 05/12/2020 04:05:00 AM EDT [facility] Name Value Range Interpretation Code Description Data Amelie rce(s) Supporting Document(s) Cholesterol, Total 165 mg/dL 100-199 [facility] Triglycerides 90 mg/dL 0-149 [facility] HDL Cholesterol 44 mg/dL >39 [facility] VLDL Cholesterol Nazario 17 mg/dL 5-40 [facility] LDL Chol Calc (NIH) 104 mg/dL 0-99 Above high normal [facility] ID Date Data Source [id number] 05/12/2020 05:05:00 PM EDT [facility] Name Value Range Interpretation Code Description Data Amelie rce(s) Supporting Document(s) RPR, Quant. NonRea<1:1 Above high normal [facility] Treponema pallidum Antibodies Reactive Non Reactive Ab normal (applies to non- numeric results) [facility] ID Date Data Source [id number] 05/12/2020 04:05:00 AM EDT [facility] Name Value Range Interpretation Code Description Data Amelie rce(s) Supporting Document(s) Lipase 34 U/L 13-78 [facility] Procedure Social History Code Duration Value Status Description Data Source(s ) Smoking 05/19/2020 12:00:00 AM EDT Patient is a former smoker completed Patient is a former smoker [facility] 05/05/2020 12:00:00 AM EDT Light tobacco smoker (10 or fewer cigarettes/day) completed Light tobacco smoker (10 or fewer cigarettes/day) [facility] Vital Signs ID Date Data Source UNK Name Value Range Interpretation Code Description Data Source(s) Body mass index (BMI) [Ratio] 44.6 kg/m2 44.6 k g/m2 [facility] Oxygen saturation in Arterial blood by Pulse oximetry 99 % 99 % [facility] Body weight 289.25 [lb_av] 289.25 [lb_av] [facility] ([facility] Body height 67.5 [in_i] 67.5 [in_i] [facility] 5'7.50" Respiratory rate 18 /min 18 /min [facility] ( [facility] Body temperature 98.7 [degF] 98.7 [degF] [facility] Heart rate 70 /min 70 /min [facility] Diastolic blood pressure 64 mm[Hg] 64 mm[Hg] [facility] Systolic blood pressure 110 mm[Hg] 110 mm[Hg] [facility] Body mass index (BMI) [Ratio] 44.8 kg/m2 44.8 k g/m2 [facility] Oxygen saturation in Arterial blood by Pulse oximetry 98 % 98 % [facility] Body weight 290.25 [lb_av] 290.25 [lb_av] [facility] ([facility] Body height 67.5 [in_i] 67.5 [in_i] [facility] ([facility] 5'7.50" Respiratory rate 18 /min 18 /min [facility] ( [facility] Body temperature 97.7 [degF] 97.7 [degF] [facility] Heart rate 73 /min 73 /min [facility] Diastolic blood pressure 75 mm[Hg] 75 mm[Hg] [facility] Systolic blood pressure 113 mm[Hg] 113 mm[Hg] M [facility] ([facility] Oxygen saturation in Arterial blood by Pulse oximetry 98 % 98 % [facility] Body height 69.5 [in_i] 69.5 [in_i] [facility] 5'9.50" Respiratory rate 16 /min 16 /min [facility] ( [facility] Body temperature 99.3 [degF] 99.3 [degF] [facility] Heart rate 87 /min 87 /min [facility] Diastolic blood pressure 72 mm[Hg] 72 mm[Hg] [facility] Systolic blood pressure 114 mm[Hg] 114 mm[Hg] M [facility] Body mass index (BMI) [Ratio] 41.8 kg/m2 41.8 k g/m2 [facility] Oxygen saturation in Arterial blood by Pulse oximetry 98 % 98 % [facility] Body weight 287.38 [lb_av] 287.38 [lb_av] [facility] ([facility] Body height 69.5 [in_i] 69.5 [in_i] [facility] 5'9.50" Respiratory rate 16 /min 16 /min [facility] ( [facility] Body temperature 98.1 [degF] 98.1 [degF] [facility] Heart rate 73 /min 73 /min [facility] Diastolic blood pressure 80 mm[Hg] 80 mm[Hg] [facility] Systolic blood pressure 116 mm[Hg] 116 mm[Hg] [facility]
[2020-09-12] MEDS ORDERED: BUPR75TA5 (13:14)
[2020-09-12] MEDS ORDERED: FLUT1INH2 (13:14)
[2020-09-12] MEDS ORDERED: PANT40TA29 (13:14)
--- OUTSIDE RECORDS SUMMARY | 2020-09-12 13:42 | CCD ---
Author Author [facility] Organization [facility] Address Unknown Phone Unavailable Care Team Providers Care Craps Dealer Name Role Phone Pleskach, Kathi REFINERY OPERATOR [employer] Unavailable Unavailable Pleskach, Kathi REFINERY OPERATOR [employer] Unavailable Unavailable Pleskach, Kathi REFINERY OPERATOR [employer] Unavailable Unavailable Pleskach, Kathi REFINERY OPERATOR [employer] Unavailable Unavailable Pleskach, Kathi REFINERY OPERATOR [employer] Unavailable Unavailable Pleskach, Kathi REFINERY OPERATOR [employer] Unavailable Unavailable Pleskach, Kathi REFINERY OPERATOR [employer] Unavailable Unavailable Pleskach, Kathi REFINERY OPERATOR [employer] Unavailable Unavailable Pleskach, Kathi REFINERY OPERATOR [employer] Unavailable Unavailable Pleskach, Kathi REFINERY OPERATOR [employer] Unavailable Unavailable Pleskach, Kathi REFINERY OPERATOR [employer] Unavailable Unavailable Pleskach, Kathi REFINERY OPERATOR [employer] Unavailable Unavailable Pleskach, Kathi REFINERY OPERATOR [employer] Unavailable Unavailable Pleskach, Kathi REFINERY OPERATOR [employer] Unavailable Unavailable Pleskach, Kathi REFINERY OPERATOR [employer] Unavailable Unavailable Pleskach, Kathi REFINERY OPERATOR [employer] Unavailable Unavailable Pleskach, Kathi REFINERY OPERATOR [employer] Unavailable Unavailable Pleskach, Kathi REFINERY OPERATOR [employer] Unavailable Unavailable Pleskach, Kathi REFINERY OPERATOR [employer] Unavailable Unavailable Pleskach, Kathi REFINERY OPERATOR [employer] Unavailable Unavailable Pleskach, Kathi REFINERY OPERATOR [employer] Unavailable Unavailable Pleskach, Kathi REFINERY OPERATOR [employer] Unavailable Unavailable Pleskach, Kathi REFINERY OPERATOR [employer] Unavailable Unavailable Pleskach, Kathi REFINERY OPERATOR [employer] Unavailable Unavailable Pleskach, Kathi REFINERY OPERATOR [employer] Unavailable Unavailable Pleskach, Kathi REFINERY OPERATOR [employer] Unavailable Unavailable Pleskach, Kathi REFINERY OPERATOR [employer] Unavailable Unavailable Pleskach, Kathi REFINERY OPERATOR [employer] Unavailable Unavailable Dille, E Sabrina DDS Unavailable [...] is protected by Article 27-F of the [facility] Public Health law. If you continue you may have access to information: Regarding HIV / AIDS; Provided by facilities licensed or operated by the [facility] Office of Mental Health; or Provided by the [facility] Office for People With Developmental Disabilities. If such information is present, then the following [facility] mandated warning applies: This information has been [...] law may result in a fine or custodial sentence or both. A general authorization for the release of medical or other information is NOT sufficient authorization for further disc losure. Encounters Encounter Providers Location Date Indications Data Source(s ) Office Visit Attender: Kathi Usama [facility] Main Office 11:00:00 AM EDT [facility] Outpatient Attender: Kathikiran Forrester [facility] Main Office 05/05/2020 0 3:30:00 PM EDT [facility] Outpatient Attender: Kathi Usama [facility] Main Office 02/11/2020 0 2:40:00 PM EDT [facility] Outpatient Attender: Sabrina Pittman Milena [facility] 02/03/2020 07:54:41 P M EDT [facility] Outpatient Attender: Kathi Forrester [facility] Main Office 02/03/2020 0 2:30:00 PM EDT [facility] Outpatient 01/08/2020 09:09:00 PM EDT [facility] Rad[facility] Imaging Medications Medication Brand Name Start [...] type / Coverage type Policy ID Covered alliance party ID Covered alliance party's relationship to palomares Policy Palomares Plan Information [employer] MCDO [id number] SP [id number] [facility]) O [id number] S [id number] [facility] [id number] SP [id number] [facility] [id number] SP [id number] [employer] COMM[employer]AN MCDO [id number] SP [id number] SELF PAY ONLY [id number] SP [id number] MEDICAID [id number] SP [id number] SELF PAY UNAVAILABLE SP UNAVAILA BLE HMO BLUE [id number] SP [id number] HMO BLUE [id number] SP [id number] [employer] [id number] SP [id number] [employer] [id number] SP [id number] Results ID Date Data Source [id number] 05/11/2020 09:49:00 AM EDT [facility] Name Value Range Interpretation Code Description Data Amelie rce(s) Supporting Document(s) Neisseria gonorrhoeae rRNA [Presence] in Unspecified specimen by Probe and target amplification method Laboratory test result [facility] A courtesy copy of this report has been sent to [phone] SRC:UR SRC:UR SRC:UR Chlamydia trachomatis rRNA [Presence] in Cervix by Probe and target amplification method Laboratory test result [facility] A courtesy copy of this report has been sent to [phone] SRC:UR SRC:UR SRC:UR ID Date Data Source [id number] 05/11/2020 09:49:00 AM EDT [facility] Name Value Range Interpretation Code Description Data Amelie rce(s) Supporting Document(s) Laboratory test finding (navigational concept) 0.55 IndexValue 0.00-0 .79 [facility] A courtesy copy of this report has been sent to [phone] SRC:UR SRC:UR SRC:UR Laboratory test finding (navigational concept) Laboratory test resu lt 0.0-8.9 [facility] ([facility] A courtesy copy of this report has been sent to [phone] SRC:UR SRC:UR SRC:UR Laboratory test finding (navigational concept) Laboratory test resu lt 0.0-8.9 [facility] ([facility] A courtesy copy of this report has been sent to [phone] SRC:UR SRC:UR SRC:UR ID Date Data Source [id number] 05/11/2020 09:49:00 AM EDT [facility] Name Value Range Interpretation Code Description Data Amelie rce(s) Supporting Document(s) Reagin Ab [Presence] in Serum by VDRL Laboratory test result Abnormal (applies to non-numeric results) [facility] A courtesy copy of this report has been sent to [phone] SRC:UR SRC:UR SRC:UR Treponema pallidum IgG+IgM Ab [Presence] in Serum by I mmunoassay Laboratory test result Abnormal (applies to non-numeric results) [facility] A courtesy copy of this report has been sent to [phone] SRC:UR SRC:UR SRC:UR Reagin Ab [Titer] in Serum by RPR Laboratory test result [facility] ([facility] A courtesy copy of this report has been sent to [phone] SRC:UR SRC:UR SRC:UR ID Date Data Source [id number] 05/11/2020 09:49:00 AM EDT [facility] Name Value Range Interpretation Code Description Data Amelie rce(s) Supporting Document(s) Glucose [Mass/volume] in Serum or Plasma 101 mg/dL 65-99 [facility] A courtesy copy of this report has been sent to [phone] SRC:UR SRC:UR SRC:UR Urea nitrogen [Mass/volume] in Serum or Plasma 15 mg/dL 6-20 [facility] A courtesy copy of this report has been sent to [phone] SRC:UR SRC:UR SRC:UR eGFR If NonAfricn Am 95 mL/min/1.73 [facility] ([facility] A courtesy copy of this report has been sent to [phone] SRC:UR SRC:UR SRC:UR Creatinine [Mass/volume] in Serum or Plasma 1.05 mg/dL 0.76-1.27 [facility] A courtesy copy of this report has been sent to [phone] SRC:UR SRC:UR SRC:UR Sodium [Moles/volume] in Serum or Plasma 139 mmol/L 134-144 [facility] A courtesy copy of this report has been sent to [phone] SRC:UR SRC:UR SRC:UR Urea nitrogen/Creatinine [Mass Ratio] in Serum or Plasma 14 9 -20 [facility] A courtesy copy of this report has been sent to [phone] SRC:UR SRC:UR SRC:UR eGFR If Africn Am 110 mL/min/1.73 [facility] ([facility] A courtesy copy of this report has been sent to [phone] SRC:UR SRC:UR SRC:UR Potassium [Moles/volume] in Serum or Plasma 4.2 mmol/L 3.5-5.2 [facility] A courtesy copy of this report has been sent to [phone] SRC:UR SRC:UR SRC:UR Chloride [Moles/volume] in Serum or Plasma 103 mmol/L 96-106 [facility] A courtesy copy of this report has been sent to [phone] SRC:UR SRC:UR SRC:UR Carbon dioxide, total [Moles/volume] in Serum or Plasma 24 mmol/L 20 -29 [facility] A courtesy copy of this report has been sent to [phone] SRC:UR SRC:UR SRC:UR Calcium [Mass/volume] in Serum or Plasma 9.4 mg/dL 8.7-10.2 [facility] ([facility] A courtesy copy of this report has been sent to [phone] SRC:UR SRC:UR SRC:UR Protein, Total 7.2 g/dL 6.0-8.5 [facility] ([facility] A courtesy copy of this report has been sent to [phone] SRC:UR SRC:UR SRC:UR Albumin [Mass/volume] in Serum or Plasma 4.5 g/dL 4.1-5.2 [facility] ([facility] A courtesy copy of this report has been sent to [phone] SRC:UR SRC:UR SRC:UR Albumin/Globulin [Mass Ratio] in Serum or Plasma 1.7 1.2-2.2 [facility] A courtesy copy of this report has been sent to [phone] SRC:UR SRC:UR SRC:UR Globulin [Mass/volume] in Serum by calculation 2.7 g/dL 1.5-4.5 [facility] A courtesy copy of this report has been sent to [phone] SRC:UR SRC:UR SRC:UR Aspartate aminotransferase [Enzymatic activity/volume] in Serum or Plasma 25 IU/L 0-40 [facility] A courtesy copy of this report has been sent to [phone] SRC:UR SRC:UR SRC:UR Alkaline phosphatase [Enzymatic activity/volume] in Serum or Plasma 81 IU/L 39-117 [facility] A courtesy copy of this report has been sent to [phone] SRC:UR SRC:UR SRC:UR Bilirubin.total [Mass/volume] in Serum or Plasma 0.4 mg/dL 0.0-1.2 [facility] ([facility] A courtesy copy of this report has been sent to [phone] SRC:UR SRC:UR SRC:UR Alanine aminotransferase [Enzymatic activity/volume] in Seru m or Plasma 41 IU/L 0-44 [facility] A courtesy copy of this report has been sent to [phone] SRC:UR SRC:UR SRC:UR ID Date Data Source [id number] 05/11/2020 09:49:00 AM EDT [facility] ([facility] Name Value Range Interpretation Code Description Data Amelie rce(s) Supporting Document(s) Erythrocytes [#/volume] in Blood by Automated count 5.31 x10E6/uL 4.1 4-5.80 [facility] A courtesy copy of this report has been sent to [phone] SRC:UR SRC:UR SRC:UR Leukocytes [#/volume] in Blood by Automated count 7.8 x10E3/uL 3.4-10 .8 [facility] ([facility] A courtesy copy of this report has been sent to [phone] SRC:UR SRC:UR SRC:UR Hematocrit [Volume Fraction] of Blood by Automated count 45.2 % 3 7.5-51.0 [facility] ([facility] A courtesy copy of this report has been sent to [phone] SRC:UR SRC:UR SRC:UR Hemoglobin [Mass/volume] in Blood 15.8 g/dL 13.0-17.7 [facility] ([facility] A courtesy copy of this report has been sent to [phone] SRC:UR SRC:UR SRC:UR Erythrocyte mean corpuscular volume [Entitic volume] by Auto mated count 85 fL 79-97 [facility] ([facility] A courtesy copy of this report has been sent to [phone] SRC:UR SRC:UR SRC:UR Erythrocyte mean corpuscular hemoglobin [Entitic mass] by Automated count 29.8 pg 26.6-33.0 [facility] ([facility] A courtesy copy of this report has been sent to [phone] SRC:UR SRC:UR SRC:UR Erythrocyte mean corpuscular hemoglobin concentration [Mass/volume] by Automated count 35.0 g/dL 31.5-35.7 [facility] ([facility] A courtesy copy of this report has been sent to [phone] SRC:UR SRC:UR SRC:UR Erythrocyte distribution width [Ratio] by Automated count 13.5 % 11.6-15.4 [facility] ([facility] A courtesy copy of this report has been sent to [phone] SRC:UR SRC:UR SRC:UR Platelets [#/volume] in Blood by Automated count 134 x10E3/uL 150-450 [facility] A courtesy copy of this report has been sent to [phone] SRC:UR SRC:UR SRC:UR Neutrophils 62 % [facility] A courtesy copy of this report has been sent to [phone] SRC:UR SRC:UR SRC:UR Lymphocytes/100 leukocytes in Blood by Automated count 27 % [facility] A courtesy copy of this report has been sent to [phone] SRC:UR SRC:UR SRC:UR Monocytes/100 leukocytes in Blood by Automated count 7 % [facility] A courtesy copy of this report has been sent to [phone] SRC:UR SRC:UR SRC:UR Basophils/100 leukocytes in Blood by Automated count 1 % [facility] A courtesy copy of this report has been sent to [phone] SRC:UR SRC:UR SRC:UR Eosinophils/100 leukocytes in Blood by Automated count 2 % [facility] A courtesy copy of this report has been sent to [phone] SRC:UR SRC:UR SRC:UR Immature cells [#/volume] in Blood Laboratory test result [facility] ([facility] A courtesy copy of this report has been sent to [phone] SRC:UR SRC:UR SRC:UR Neutrophils [#/volume] in Blood by Automated count 4.9 x10E3/uL 1.4-7 .0 [facility] ([facility] A courtesy copy of this report has been sent to [phone] SRC:UR SRC:UR SRC:UR Lymphocytes [#/volume] in Blood 2.1 x10E3/uL 0.7-3.1 [facility] ([facility] A courtesy copy of this report has been sent to [phone] SRC:UR SRC:UR SRC:UR Monocytes [#/volume] in Blood 0.5 x10E3/uL 0.1-0.9 [facility] ([facility] A courtesy copy of this report has been sent to [phone] SRC:UR SRC:UR SRC:UR Eosinophils [#/volume] in Blood by Automated count 0.2 x10E3/uL 0.0-0 .4 [facility] ([facility] A courtesy copy of this report has been sent to [phone] SRC:UR SRC:UR SRC:UR Basophils [#/volume] in Blood by Automated count 0.0 x10E3/uL 0.0-0.2 [facility] ([facility] A courtesy copy of this report has been sent to [phone] SRC:UR SRC:UR SRC:UR Immature granulocytes/100 leukocytes in Blood by Automated count 1 % [facility] A courtesy copy of this report has been sent to [phone] SRC:UR SRC:UR SRC:UR Immature granulocytes [#/volume] in Blood by Automated count 0.0 x10E3/uL 0.0-0.1 [facility] ([facility] A courtesy copy of this report has been sent to [phone] SRC:UR SRC:UR SRC:UR Nucleated erythrocytes/100 leukocytes [Ratio] in Blood by Automated count Laboratory test result [facility] ([facility] A courtesy copy of this report has been sent to [phone] SRC:UR SRC:UR SRC:UR Morphology [Interpretation] in Blood Narrative Laboratory test result [facility] ([facility] A courtesy copy of this report has been sent to [phone] SRC:UR SRC:UR SRC:UR ID Date Data Source [id number] 05/11/2020 09:49:00 AM EDT [facility] ([facility] Name Value Range Interpretation Code Description Data Amelie rce(s) Supporting Document(s) Lipoprotein lipase [Enzymatic activity/volume] in Serum or Plasm a 34 U/L 13-78 [facility] A courtesy copy of this report has been sent to [phone] SRC:UR SRC:UR SRC:UR ID Date Data Source [id number] 05/11/2020 09:49:00 AM EDT [facility] ([facility] Name Value Range Interpretation Code Description Data Amelie rce(s) Supporting Document(s) Cholesterol [Mass/volume] in Serum or Plasma 165 mg/dL 100-199 [facility] A courtesy copy of this report has been sent to [phone] SRC:UR SRC:UR SRC:UR Triglyceride [Mass/volume] in Serum or Plasma 90 mg/dL 0-149 [facility] A courtesy copy of this report has been sent to [phone] SRC:UR SRC:UR SRC:UR Cholesterol in HDL [Mass/volume] in Serum or Plasma 44 mg/dL [facility] A courtesy copy of this report has been sent to [phone] SRC:UR SRC:UR SRC:UR Laboratory test finding (navigational concept) 104 mg/dL 0-99 [facility] ([facility] A courtesy copy of this report has been sent to [phone] SRC:UR SRC:UR SRC:UR Laboratory test finding (navigational concept) 17 mg/dL 5-40 [facility] ([facility] A courtesy copy of this report has been sent to [phone] SRC:UR SRC:UR SRC:UR Comment: Laboratory test result [facility] ([facility] A courtesy copy of this report has been sent to [phone] SRC:UR SRC:UR SRC:UR ID Date Data Source [id number] 05/12/2020 04:05:00 AM EDT [facility] Name Value [...] 0.0-0.1 [facility] ID Date Data Source [id number] 05/12/2020 02:06:00 PM EDT [facility] Name Value Range Interpretation Code Description Data Amelie rce(s) Supporting Document(s) Chlamydia/GC Amplification Lab Tristen TESTS RESULT FLAG UNI TS REF RANGE LAB C trachomatis, GUERITA Negative (Negative) 01N gonorrhoeae, GUERITA Negative (Negative) 01 FLAG LEGEND: L-Low Normal,H-High Normal,LL-Alert Low,HH-Alert High <-Panic Low,>-Panic High,A-Abnormal,AA-Critical Abnormal Performed at:[facility] [address] [address] Lauren Hua MD, ID Date Data Source [id number] 05/12/2020 05:05:00 PM EDT [facility] Name Value [...] and Drug Administration. ID Date Data Source [id number] 05/12/2020 04:05:00 AM EDT [facility] Name Value [...] IU/L 0-44 [facility] ID Date Data Source [id number] 05/12/2020 05:05:00 PM EDT [facility] Name Value Range Interpretation Code Description Data Amelie rce(s) Supporting Document(s) RPR Reactive Non Reactive Abnormal (applies to non-numeric resu lts) [facility] ID Date Data Source [id number] 05/12/2020 04:05:00 AM EDT [facility] Name Value Range Interpretation Code Description Data Amelie rce(s) Supporting Document(s) Cholesterol, Total 165 mg/dL 100-199 [facility] Triglycerides 90 mg/dL 0-149 [facility] HDL Cholesterol 44 mg/dL >39 [facility] VLDL Cholesterol Nazario 17 mg/dL 5-40 [facility] LDL Chol Calc (NIH) 104 mg/dL 0-99 Above high normal [facility] ID Date Data Source [id number] 05/12/2020 05:05:00 PM EDT [facility] Name Value Range Interpretation Code Description Data Amelie rce(s) Supporting Document(s) RPR, Quant. NonRea<1:1 Above high normal [facility] Treponema pallidum Antibodies Reactive Non Reactive Ab normal (applies to non- numeric results) [facility] ID Date Data Source [id number] 05/12/2020 04:05:00 AM EDT [facility] Name Value [...] 287.38 [lb_av] 287.38 [lb_av] [facility] Body height 69.5 [...] Systolic blood pressure 116 mm[Hg] 116 mm[facility]Hg] [facility]
== END 2020-09-12 14:02 | disposition home or self-care (01) ==
LOC: M ED 13:08
DX: R06.00 Dyspnea, unspecified (principal); R05 Cough; Z20.828 Contact with and (suspected) exposure to other viral communicable diseases; K21.9 Gastro-esophageal reflux disease without esophagitis; F41.9 Anxiety disorder, unspecified; F33.9 Major depressive disorder, recurrent, unspecified; F17.200 Nicotine dependence, unspecified, uncomplicated; Z79.899 Other long term (current) drug therapy
CPT/HCPCS: 99282; U0003

== ENCOUNTER → 2021-02-04 | Outpatient (CLI) | payer OTHER ==
[~2021-02-04] MED LIST changes: +BUPR75TA5; +BUPR75TA5 PO; +FAMO20TA5 PO; +FLUT1INH2; +PANT40TA29; +PANT40TA29 PO
== END ==
LOC: M LABSMTC 09:52
PROVIDERS: ATTEND Anesthesiology
DX: Z01.812 Encounter for preprocedural laboratory examination (principal); Z20.822 Contact with and (suspected) exposure to COVID-19

== ENCOUNTER 2021-02-09 11:06 | Day surgery (SDC) | payer OTHER ==
[~2021-02-09] VITALS: Ht 172.7 cm; Wt 122.5 kg
[~2021-02-09 11:06] MED LIST changes: +NS 1,000 ML IV ONE
[2021-02-09] MEDS ORDERED: LIDOCAINE 2% 100MG/5ML SDV (FOR ANES.) As Ordered ONE (12:38)
[2021-02-09] MEDS ORDERED: propofoL 200 MG/20 ML VIAL As Ordered ONE (12:38)
[2021-02-09] MEDS ORDERED: fentaNYL 100 MCG/2 ML INJECTION (J3010) As Ordered ONE (12:38)
--- NOTE | 2021-02-09 13:46 | ROOR ---
Patient Name: Leander Sharif Procedure Date: 02/09/2021 1:19 PM Date of : 1990 Age: 30 Room: [facility] Gender: Male Note Status: Finalized Procedure: Upper GI endoscopy Indications: Functional Dyspepsia, Heartburn, Nausea Providers: Ministerio Farrell MD Referring MD: Kathi Forrester NP Requesting Provider: Medicines: Monitored Anesthesia Care Complications: No immediate complications. Procedure: Pre-Anesthesia Assessment: - Prior to the procedure, a History and Physical was performed, and patient medications and allergies were reviewed. The patient is competent. The risks and benefits of the procedure and the sedation options and risks were discussed with the patient. All questions were answered and informed consent was obtained. Patient identification and proposed procedure were verified by the physician, the nurse and the anesthesiologist in the endoscopy suite. Mental Status Examination: alert and oriented. Airway Examination: normal oropharyngeal airway and neck mobility. Respiratory Examination: clear to auscultation. CV Examination: normal. Prophylactic Antibiotics: The patient does not require prophylactic antibiotics. Prior Anticoagulants: The patient has taken no previous anticoagulant or antiplatelet agents. ASA Grade Assessment: II - A patient with mild systemic disease. After reviewing the risks and benefits, the patient was deemed in satisfactory condition to undergo the procedure. The anesthesia plan was to use monitored anesthesia care (MAC). Immediately prior to administration of medications, the patient was re-assessed for adequacy to receive sedatives. The heart rate, respiratory rate, oxygen saturations, blood pressure, adequacy of pulmonary ventilation, and response to care were monitored throughout the procedure. The physical status of the patient was re-assessed after the procedure. The Endoscope was introduced through the mouth, and advanced to the second part of duodenum. The upper GI endoscopy was technically difficult and complex due to the patient's excessive discomfort during the procedure. Successful completion of the procedure was aided by increasing the dose of sedation medication. The patient tolerated the procedure poorly due to the patient's excessive discomfort during the procedure. Findings: There were esophageal mucosal changes suspicious for short-segment Goins's esophagus present in the lower third of the esophagus. The maximum longitudinal extent of these mucosal changes was 0.5 cm in length. Mucosa was biopsied with a cold forceps for histology. One specimen bottle was sent to pathology. Estimated blood loss was minimal. A small hiatal hernia was present. Diffuse mild inflammation characterized by granularity and aphthous ulcerations was found in the gastric antrum. Biopsies were taken with a cold forceps for Helicobacter pylori testing. Estimated blood loss was minimal. Narrow pyloric opening (not stenosed). I was able to get through. no thickening. The first portion of the duodenum and second portion of the duodenum were normal. Impression: - Esophageal mucosal changes suspicious for short-segment Goins's esophagus. Biopsied. - Small hiatal hernia. - Chronic gastritis. Biopsied. - Normal first portion of the duodenum and second portion of the duodenum. Recommendation: - Discharge patient to home (ambulatory). - Use Protonix (pantoprazole) 40 mg PO BID for 6 weeks. - Use sucralfate tablets 1 gram PO QID for 6 weeks. Procedure Code(s): --- Professional --- 78825, Esophagogastroduodenoscopy, flexible, transoral; with biopsy, single or multiple Diagnosis Code(s): --- Professional --- K22.8, Other specified diseases of esophagus K44.9, Diaphragmatic hernia without obstruction or gangrene K29.50, Unspecified chronic gastritis without bleeding K30, Functional dyspepsia R12, Heartburn R11.0, Nausea CPT copyright 2019 [employer]. All rights reserved. The codes documented in this report are preliminary and upon lavatory attendant review may be revised to meet current compliance requirements. Ministerio Farrell MD Ministerio Farrell MD 02/09/2021 1:46:37 PM Electronically signed by Ministerio Farrell MD Number of Addenda: 0 Note Initiated On: 02/09/2021 1:19 PM Estimated Blood Loss: Estimated blood loss was minimal.
[2021-02-09 14:05] VITALS: BP 168/76
== END 2021-02-09 14:12 | disposition home or self-care (01) ==
LOC: M OPP 11:06
PROVIDERS: ATTEND Surgery
DX: K22.8 Other specified diseases of esophagus (principal); K44.9 Diaphragmatic hernia without obstruction or gangrene; K29.50 Unspecified chronic gastritis without bleeding; R12 Heartburn; R11.0 Nausea; Z79.899 Other long term (current) drug therapy; Z87.891 Personal history of nicotine dependence
CPT/HCPCS: 43239; 88305; J3010

== ENCOUNTER 2021-12-14 08:30 | Day surgery (SDC) | payer OTHER ==
[~2021-12-14] VITALS: Ht 172.7 cm; Wt 116.1 kg
[~2021-12-14 08:30] MED LIST changes: +LIDOCAINE 2% 100MG/5ML SDV (FOR ANES.) As Ordered ONE; +propofoL 200 MG/20 ML VIAL As Ordered ONE
[2021-12-14] MEDS ORDERED: fentaNYL 100 MCG/2 ML INJECTION As Ordered ONE (09:17)
[2021-12-14 09:45] VITALS: BP 115/55
== END 2021-12-14 10:05 | disposition home or self-care (01) ==
LOC: M OPP 08:30
PROVIDERS: ATTEND Surgery
DX: K59.00 Constipation, unspecified (principal); Z80.0 Family history of malignant neoplasm of digestive organs; K21.9 Gastro-esophageal reflux disease without esophagitis; R12 Heartburn; Z79.899 Other long term (current) drug therapy; Z87.891 Personal history of nicotine dependence
CPT/HCPCS: 45378; J3010

== ENCOUNTER 2022-06-18 16:39 | Emergency (ER) | payer OTHER ==
[~2022-06-18] VITALS: Ht 172.7 cm; Wt 112.3 kg
[~2022-06-18 16:39] MED LIST changes: -LIDOCAINE 2% 100MG/5ML SDV (FOR ANES.) As Ordered ONE; -NS 1,000 ML IV ONE; -propofoL 200 MG/20 ML VIAL As Ordered ONE
[2022-06-18] MEDS ORDERED: ALBU8.5H (17:02)
[2022-06-18] MEDS ORDERED: NS 1,000 ML IV ONE (19:25)
[2022-06-18] MEDS ORDERED: SUCRALFATE 1 GM TAB PO ONE (19:25)
[2022-06-18] MEDS ORDERED: GI COCKTAIL 50ML BTL(HYOSCYAMINE/MAALOX/LIDOCAINE VISCOUS)(1:3:1) PO ONE (19:25)
[2022-06-18] MEDS ORDERED: PANTOPRAZOLE 40MG VIAL IV ONE (19:25)
[2022-06-18] MEDS ORDERED: ONDANSETRON 4MG 2ML VIAL IV ONE (19:25)
[2022-06-18 19:41] LABS: BASO % 0.3 % (0.0-1.0); EOS # 0.1 10^3/uL (0.0-0.5); EOS % 0.5 % (0.0-3.0); HEMATOCRIT 51.9 % (42.0-52.0); HEMOGLOBIN 17.5 g/dl (13.5-17.5); LYMPH # 1.5 10^3/uL (1.5-5.0); LYMPH % 14.2 % (24.0-44.0); MEAN CORPUSCULAR HEMOGLOBIN 29.4 pg (27.0-33.0); MEAN CORPUSCULAR HGB CONC 33.7 g/dl (32.0-36.5); MEAN CORPUSCULAR VOLUME 87.2 fl (80.0-96.0); MONO # 0.9 10^3/uL (0.0-0.8); MONO % 8.3 % (2.0-8.0); NEUTROPHILS # 7.9 10^3/uL (1.5-8.5); PLATELET COUNT, AUTOMATED 149 10^3/uL (150-450); RED BLOOD COUNT 5.95 10^6/uL (4.30-6.10); WHITE BLOOD COUNT 10.4 10^3/uL (4.0-10.0)
[2022-06-18 20:12] LABS: ALBUMIN 4.2 GM/DL (3.2-5.2); ALT/SGPT 38 U/L (12-78); BILIRUBIN,DIRECT 0.2 MG/DL (0.0-0.2); BILIRUBIN,TOTAL 0.7 MG/DL (0.2-1.0); LIPASE 69 U/L (73-393); TOTAL PROTEIN 8.3 GM/DL (6.4-8.2)
[2022-06-18] MEDS ORDERED: ONDA4TAB6 PO (22:20)
[2022-06-18 22:29] VITALS: BP 102/54
[2022-06-19 11:39] LABS: HIV 1&2 SCREEN CENTAUR NEGATIVE (NEGATIVE)
== END 2022-06-18 22:32 | disposition home or self-care (01) ==
LOC: M ED 16:39
DX: R11.2 Nausea with vomiting, unspecified (principal); R19.7 Diarrhea, unspecified; R10.9 Unspecified abdominal pain; J45.909 Unspecified asthma, uncomplicated; Z79.51 Long term (current) use of inhaled steroids; Z79.899 Other long term (current) drug therapy
CPT/HCPCS: 74021; 80047; 80076; 83690; 85025; 86592; 86780; 87389; 96374; 96375; 99284; C9113; J2405

== ENCOUNTER → 2022-08-11 | Outpatient (CLI) | payer OTHER ==
[~2022-08-11] MED LIST changes: +ALBU8.5H; +ONDA4TAB6 PO
[2022-08-11 18:58] LABS: HEPATITIS B SURFACE ANTIGEN NEGATIVE (NEGATIVE)
[2022-08-11 19:19] LABS: HEPATITIS B CORE ANTIBODY IGM NEGATIVE (NEGATIVE); HEPATITIS C VIRUS ABY INDEX 0.1 INDEX (<0.8)
== END ==
LOC: M WUC 15:09
PROVIDERS: ATTEND Internal Medicine
DX: B99.9 Unspecified infectious disease (principal)

== ENCOUNTER 2023-02-18 02:28 | Emergency (ER) | payer OTHER ==
[~2023-02-18] VITALS: Ht 172.7 cm; Wt 109.3 kg
[2023-02-18] MEDS ORDERED: BACITRACIN OINTMENT 30GM TUBE TOP ONE (06:15)
[2023-02-18 06:31] VITALS: BP 138/80; TEMP 98.4; O2SAT 98
== END 2023-02-18 06:37 | disposition home or self-care (01) ==
LOC: M ED 02:28
DX: S80.812A Abrasion, left lower leg, initial encounter (principal); S80.12XA Contusion of left lower leg, initial encounter; V09.20XA Pedestrian injured in traffic accident involving unspecified motor vehicles, initial encounter; Y92.410 Unspecified street and highway as the place of occurrence of the external cause; K21.9 Gastro-esophageal reflux disease without esophagitis; F17.200 Nicotine dependence, unspecified, uncomplicated; Z79.899 Other long term (current) drug therapy

== ENCOUNTER → 2023-10-05 | Outpatient (CLI) | payer OTHER | LOC: M RAD 10:59 | PROVIDERS: ATTEND Physician Assistant Medical | DX: R31.9 Hematuria, unspecified (principal) ==

== ENCOUNTER 2025-04-27 06:37 | Emergency (ER) | payer OTHER ==
[~2025-04-27] VITALS: Ht 172.7 cm; Wt 113.1 kg
[~2025-04-27 06:37] MED LIST changes: +ONDA-282 PO; -ONDA4TAB6 PO; -PROZ20CA11 PO; +PROZ20CA12 PO
[2025-04-27] MEDS ORDERED: EMTR1TAB3 PO (06:47)
[2025-04-27 08:30] VITALS: BP 112/57; TEMP 97.3; O2SAT 98
[2025-04-27] MEDS ORDERED: BACT800T5 PO (08:32)
[2025-04-27] MEDS ORDERED: VALA1TAB5 PO (08:32)
== END 2025-04-27 08:42 | disposition home or self-care (01) ==
LOC: M ED 06:37
DX: B02.8 Zoster with other complications (principal); Z79.2 Long term (current) use of antibiotics; Z79.899 Other long term (current) drug therapy

== ENCOUNTER 2025-04-29 03:56 | Emergency (ER) | payer OTHER ==
[~2025-04-29] VITALS: Ht 172.7 cm; Wt 113.0 kg
[~2025-04-29 03:56] MED LIST changes: +EMTR1TAB3 PO; +VALA1TAB5 PO
[2025-04-29 08:35] LABS: BASO # 0.1 10^3/uL (0.0-0.2); BASO % 0.8 % (0.0-1.0); EOS # 0.4 10^3/uL (0.0-0.5); EOS % 4.5 % (0.0-3.0); LYMPH # 2.4 10^3/uL (1.5-5.0); LYMPH % 31.4 % (24.0-44.0); MONO # 0.6 10^3/uL (0.0-0.8); MONO % 7.5 % (2.0-8.0); NEUTROPHILS # 4.3 10^3/uL (1.5-8.5); NEUTROPHILS % 55.3 % (36.0-66.0); PLATELET COUNT, AUTOMATED 142 10^3/uL (150-450)
[2025-04-29 08:41] LABS: ERYTHROCYTE SEDIMENTATION RATE 13 mm/hr (0-15)
[2025-04-29 09:01] LABS: C REACTIVE PROTEIN QUANTITATIV < 0.50 MG/DL (<1.0)
[2025-04-29 09:02] LABS: ALT/SGPT 36 U/L (7.0-40); AST/SGOT 28 U/L (<34); CALCIUM LEVEL 9.9 MG/DL (8.5-10.1); CARBON DIOXIDE LEVEL 28 MMOL/L (20-31); CHLORIDE LEVEL 104 MMOL/L (98-107); CREATININE FOR GFR 1.06 MG/DL (0.70-1.30); GLOMERULAR FILTRATION RATE > 90.0 (>60); POTASSIUM SERUM 4.1 MMOL/L (3.5-5.1); SODIUM LEVEL 141 MMOL/L (136-145)
[2025-04-29] MEDS: DALBAVANCIN 1,500 MG in D5W 250 ML IV ONE (09:20)
[2025-04-29 09:26] VITALS: TEMP 97.3
[2025-04-29 09:37] LABS: HIV 1&2 SCREEN NEGATIVE (NEGATIVE)
[2025-04-29 10:00] VITALS: BP 110/55
[2025-04-29 10:15] VITALS: O2SAT 99
== END 2025-04-29 10:22 | disposition home or self-care (01) ==
LOC: M ED 07:57
DX: R21 Rash and other nonspecific skin eruption (principal); Z86.14 Personal history of Methicillin resistant Staphylococcus aureus infection
CPT/HCPCS: 80053; 85025; 85652; 86140; 87389; 96365; 99284; J0875

== ENCOUNTER 2025-04-30 19:31 | Emergency (ER) | payer OTHER ==
[~2025-04-30] VITALS: Ht 172.7 cm; Wt 112.2 kg
[2025-04-30 19:37] VITALS: BP 110/78; TEMP 96.6; O2SAT 98
== END 2025-04-30 23:34 | disposition left against medical advice (07) ==
LOC: M ED 19:31
DX: R21 Rash and other nonspecific skin eruption (principal); Z53.21 Procedure and treatment not carried out due to patient leaving prior to being seen by health care provider

== ENCOUNTER → 2025-04-30 | Outpatient (CLI) | payer OTHER ==
[2025-04-30 15:11] LABS: BASO # 0.1 10^3/uL (0.0-0.2); BASO % 0.6 % (0.0-1.0); EOS # 0.3 10^3/uL (0.0-0.5); EOS % 4.2 % (0.0-3.0); LYMPH # 2.1 10^3/uL (1.5-5.0); LYMPH % 26.2 % (24.0-44.0); MONO # 0.6 10^3/uL (0.0-0.8); MONO % 7.2 % (2.0-8.0); NEUTROPHILS # 4.8 10^3/uL (1.5-8.5); NEUTROPHILS % 61.4 % (36.0-66.0); PLATELET COUNT, AUTOMATED 152 10^3/uL (150-450)
== END ==
LOC: M WUC 12:01
PROVIDERS: ATTEND Physician Assistant
DX: R21 Rash and other nonspecific skin eruption (principal)